=== PATIENT | male | born 1975 | race Caucasian/White ===

== ENCOUNTER 2016-07-20 17:43 | Emergency (ER) | payer BC ==
[~2016-07-20] VITALS: Ht 165.1 cm; Wt 98.8 kg
[2016-07-20 21:46] LABS: EOSINOPHIL (%) 0.2 % (0-5); HEMATOCRIT 48.3 % (38.0-50.0); IMMATURE GRANULOCYTE (%) 0.1 % (0.0-0.7); IMMATURE GRANULOCYTE COUNT 0.1 K/uL; MCH 31.3 PG (29.0-34.0); MCHC 35.2 G/DL (30.0-36.0); MCV 88.8 FL (86-99); MEAN PLAT.VOLUME 9.3 uM^3 (9.0-12.4); MONOCYTE (%) 9.6 % (3-12); MONOCYTE COUNT 0.8 K/uL (0-0.8); NEUTROPHIL (%) 53.2 % (45-76); NEUTROPHIL COUNT 4.3 K/uL (1.8-6.4); PLATELET COUNT 277 K/uL (156-360); RBC DIS.WIDTH-CV 12.5 % (11.8-14.6); RBC DIS.WIDTH-SD 40.6 % (39-53); RED BLOOD COUNT 5.44 M/uL (4.00-5.50); WHITE BLOOD COUNT 8.1 K/uL (4.1-10.2)
[2016-07-20 21:56] LABS: CHLORIDE 101 mEq/L (99-109); POTASSIUM 4.4 mEq/L (3.7-5.4); SODIUM 145 mEq/L (136-147)
[2016-07-20 21:58] LABS: GLUCOSE 105 mg/dL (70-99)
[2016-07-20 21:59] LABS: ANION GAP 16 MEQ/L (2-14)
[2016-07-20 22:00] LABS: TOTAL BILIRUBIN 0.6 mg/dL (0.0-1.0)
[2016-07-20 22:01] LABS: ALKALINE PHOSPHATASE 59 IU/L (3-129); SERUM ETHYL ALCOHOL 300 mg/dL
[2016-07-20 22:02] LABS: GFR ESTIMATE (CALCULATED) > 59 mL/min/
[2016-07-20 22:03] LABS: UREA NITROGEN (BUN) 10 mg/dL (9-23)
[2016-07-20 22:04] LABS: AMPHETAMINE NEGATIVE (500 ng/mL); BARBITURATES NEGATIVE (200 ng/mL); BENZODIAZEPINES NEGATIVE (150 ng/mL); COCAINE NEGATIVE (150 ng/mL); INTERNAL CONTROLS VALID? YES; METHADONE NEGATIVE (200 ng/mL); METHAMPHETAMINE NEGATIVE (500 ng/mL); OPIATES (MORPHINE) NEGATIVE (100 ng/mL); OXYCODONE NEGATIVE (100 ng/mL); PHENCYCLIDINE NEGATIVE (25 ng/mL); PROPOXYPHENE NEGATIVE (300 ng/mL); THC CANNABINOIDS NEGATIVE (50 ng/mL); TRICYCLIC ANTIDEPRESSANTS NEGATIVE (300 ng/mL)
[2016-07-20] MEDS ORDERED: LIBRIUM25 MG PO (23:13)
[2016-07-20 23:53] VITALS: BP 136/93
== END 2016-07-20 23:54 | disposition home or self-care (01) ==
LOC: EME 17:43
PROVIDERS: Emergency Medicine
DX: F10.129 Alcohol abuse with intoxication, unspecified (principal); Y90.8 Blood alcohol level of 240 mg/100 ml or more; F32.9 Major depressive disorder, single episode, unspecified
CPT/HCPCS: 70450; 80053; 85025; 99281; 99284; G0480

== ENCOUNTER 2016-07-24 14:24 | Emergency (ER) | payer BC ==
[~2016-07-24] VITALS: Ht 170.2 cm; Wt 103.8 kg
[~2016-07-24 14:24] MED LIST: LIBRIUM25 MG PO
[2016-07-24 16:54] LABS: EOSINOPHIL (%) 4.7 % (0-5); EOSINOPHIL COUNT 0.3 K/uL (0-0.3); IMMATURE GRANULOCYTE (%) 0.3 % (0.0-0.7); IMMATURE GRANULOCYTE COUNT 0.2 K/uL; LYMPHOCYTE COUNT 1.6 K/uL (1.0-2.8); MCH 31.6 PG (29.0-34.0); MCHC 34.3 G/DL (30.0-36.0); MEAN PLAT.VOLUME 9.7 uM^3 (9.0-12.4); MONOCYTE (%) 11.4 % (3-12); MONOCYTE COUNT 0.7 K/uL (0-0.8); NEUTROPHIL COUNT 3.5 K/uL (1.8-6.4); PLATELET COUNT 197 K/uL (156-360); RBC DIS.WIDTH-CV 12.6 % (11.8-14.6); RBC DIS.WIDTH-SD 40.9 % (39-53); WHITE BLOOD COUNT 6.1 K/uL (4.1-10.2)
[2016-07-24 17:03] LABS: CHLORIDE 104 mEq/L (99-109); POTASSIUM 4.3 mEq/L (3.7-5.4); SODIUM 141 mEq/L (136-147)
[2016-07-24 17:05] LABS: GLUCOSE 116 mg/dL (70-99)
[2016-07-24 17:06] LABS: ANION GAP 8 MEQ/L (2-14)
[2016-07-24 17:07] LABS: TOTAL BILIRUBIN 0.5 mg/dL (0.0-1.0)
[2016-07-24 17:08] LABS: ALKALINE PHOSPHATASE 45 IU/L (3-129); SERUM ETHYL ALCOHOL < 10 mg/dL
[2016-07-24 17:09] LABS: GFR ESTIMATE (CALCULATED) > 59 mL/min/
[2016-07-24 17:10] LABS: UREA NITROGEN (BUN) 15 mg/dL (9-23)
[2016-07-24 17:34] VITALS: BP 157/96
== END 2016-07-24 17:42 | disposition home or self-care (01) ==
LOC: EME 14:24
PROVIDERS: Emergency Medicine
DX: F32.9 Major depressive disorder, single episode, unspecified (principal); F10.20 Alcohol dependence, uncomplicated
CPT/HCPCS: 80053; 85025; 90839; 99281; 99284; G0480